=== PATIENT | male | born 1980 | race American Indian/Alaskan Native ===

== ENCOUNTER 2019-10-05 17:38 | Emergency (ER) | payer OTHER ==
[2019-10-05] MEDS ORDERED: NEOMY 3.5 MG/BACIT 400 UNITS/POLY B 5000 UNITS/GM OINT PACKET TP ONE (17:48)
[2019-10-05] MEDS ORDERED: LIDOCAINE (1%) 10 MG/1 ML VIAL 20 ML MDV INFILTRATI ONE (17:48)
[2019-10-05] MEDS ORDERED: SODIUM CHLORIDE 0.9% IRR 500 ML BOTTLE IR ONE (17:48)
[2019-10-05] MEDS ORDERED: HYDROcodone/ACETAMINOPHEN 5-325 MG TAB PO ONE (17:48)
[2019-10-05] MEDS ORDERED: SODIUM CHLORIDE IRRI 500 ML 500 ML IR ONE (17:48)
[2019-10-05] MEDS ORDERED: cephALEXin 500 MG CAP PO ONE (17:48)
--- NOTE | 2019-10-05 17:52 | Emergency Department Report ---
- General Chief Complaint: Wound/Laceration Stated Complaint: LEFT THUMB CUT Time Seen by Provider: 10/05/19 17:48 Source: patient Mode of arrival: Ambulatory Limitations: No Limitations - History of Present Illness Initial Comments: 39 yo male comes to ER sp cutting his left thumb while working on care. Bleeding controlled. Neurovasc intact. Full ROM. Tdap < 5 y ago - Related Data Previous Rx's Medication Instructions Recorded Last Taken Type Acetaminophen/Codeine [Tylenol 1 tab PO Q6H PRN #12 tab 10/05/19 Unknown Rx /Codeine # 3 tab] cephALEXin [Keflex] 500 mg PO Q12HR #20 cap 10/05/19 Unknown Rx Allergies Allergy/AdvReac Type Severity Reaction Status Date / Time No Known Allergies Allergy Unverified 10/05/19 17:39 ED Review of Systems ROS: Stated complaint: LEFT THUMB CUT Other details as noted in HPI Comment: All other systems reviewed and negative ED Past Medical Hx - Past Medical History Previous Medical History?: No - Surgical History Past Surgical History?: Yes Additional Surgical History: knee surgery eye surgery - Family History Family history: no significant - Social History Smoking Status: Never Smoker Substance Use Type: None - Medications Home Medications: Home Medications Medication Instructions Recorded Confirmed Last Taken Type Acetaminophen/Codeine [Tylenol 1 tab PO Q6H PRN #12 tab 10/05/19 Unknown Rx /Codeine # 3 tab] cephALEXin [Keflex] 500 mg PO Q12HR #20 cap 10/05/19 Unknown Rx ED Physical Exam - General Limitations: No Limitations General appearance: alert, in no apparent distress - Head Head exam: Present: atraumatic, normocephalic - Eye Eye exam: Present: normal appearance - ENT ENT exam: Present: mucous membranes moist - Neck Neck exam: Present: normal inspection - Respiratory Respiratory exam: Present: normal lung sounds bilaterally. Absent: respiratory distress - Cardiovascular Cardiovascular Exam: Present: regular rate, normal rhythm. Absent: systolic murmur, diastolic murmur, rubs, gallop - GI/Abdominal GI/Abdominal exam: Present: soft, normal bowel sounds - Rectal Rectal exam: Present: deferred - Extremities Exam Extremities exam: Present: normal inspection - Expanded Upper Extremity Exam Left Hand L/R Front: 1 - Positive: other (lac) - Back Exam Back exam: Present: normal inspection - Neurological Exam Neurological exam: Present: alert, oriented X3 - Psychiatric Psychiatric exam: Present: normal affect, normal mood - Skin Skin exam: Present: warm, dry, intact, normal color, other (LAC LEFT THUMB;). Absent: rash ED Course Vital Signs 10/05/19 17:42 Temperature 98.4 F Pulse Rate 85 Respiratory 18 Rate Blood Pressure 144/95 O2 Sat by Pulse 96 Oximetry - Laceration /Wound Repair L THUMB Wound Location: upper extremity Wound Length (cm): 2 Wound's Depth, Shape: superficial Irrigated w/ Saline (ccs): 100 Betadine Prep?: Yes Anesthesia: 1% Lidocaine Volume Anesthetic (ccs): 2 Wound Debrided: minimal Wound Repaired With: sutures Suture Size/Type: 4:0 Number of Sutures: 3 Layer Closure?: No Sterile Dressing Applied?: Yes - Nerve Block Consent Obtained: verbal consent Time Out Performed: Yes Local Anesthetic Used: Lidocaine 2% Side: left Nerve Blocks: digital Procedure Successful: Yes Complications: none Patient Tolerated Procedure: well ED Medical Decision Making - Medical Decision Making WOUND CLEANED AND REPAIRED TDAP GIVEN < 5 Y AGO Keflex PO Wound dressed Neuro vasc intact with full ROM before and after repair. Vital Signs 10/05/19 17:42 Temperature 98.4 F Pulse Rate 85 Respiratory 18 Rate Blood Pressure 144/95 O2 Sat by Pulse 96 Oximetry DC HOME ON KEFLEX pt verbalizes understanding of wound care and dc plan of care - Differential Diagnosis SIMPLE LAC Critical care attestation.: If time is entered above; I have spent that time in minutes in the direct care of this critically ill patient, excluding procedure time. ED Disposition Clinical Impression: Laceration Disposition: DC-01 TO HOME OR SELFCARE Is pt being admited?: No Does the pt Need Aspirin: No Condition: Stable Instructions: Laceration (ED) Additional Instructions: KEEP WOUND CLEAN AND DRY MOTRIN OR TYLENOL FOR PAIN ICE/ELEVATE TONIGHT MED ORDERED TO PREVENT INFECTION RETURN TO ER IN 7 DAYS TO HAVE SUTURES REMOVED Prescriptions: cephALEXin [Keflex] 500 mg PO Q12HR #20 cap Acetaminophen/Codeine [Tylenol /Codeine # 3 tab] 1 tab PO Q6H PRN #12 tab PRN Reason: Pain , Severe (7-10) Referrals: DYLON MEZA MD [Staff Physician] - 3-5 Days Time of Disposition: 17:50
[2019-10-05 18:01] VITALS: BP 144/95
== END 2019-10-05 18:25 | disposition home or self-care (01) ==
LOC: ED 17:38
DX: S61.012A Laceration without foreign body of left thumb without damage to nail, initial encounter (principal); W45.8XXA Other foreign body or object entering through skin, initial encounter; Y93.89 Activity, other specified; Y92.89 Other specified places as the place of occurrence of the external cause; Y99.8 Other external cause status
CPT/HCPCS: 99282; A6250

== ENCOUNTER 2019-11-06 22:20 | Emergency (ER) | payer OTHER ==
--- NOTE | 2019-11-06 23:08 | XRay Report ---
LEFT SHOULDER 3 VIEWS INDICATION / CLINICAL INFORMATION: fall with pain COMPARISON: None available. FINDINGS: BONES / JOINT(S): No acute fracture or subluxation. No significant arthritis. SOFT TISSUES: No significant abnormality. ADDITIONAL FINDINGS: None. Signer Name: Agustín Sommer MD Signed: 11/06/2019 11:03 PM Workstation Name: [id number]
[2019-11-07] MEDS ORDERED: HYDROcodone/ACETAMINOPHEN 5-325 MG TAB PO STA (05:05)
--- NOTE | 2019-11-07 05:13 | Emergency Department Report ---
ED Upper Extremity Inj HPI - General Chief Complaint: Shoulder Injury Stated Complaint: FALL(LEFT SHOULDER PAIN) Time Seen by Provider: 11/07/19 03:54 Source: patient Mode of arrival: Ambulatory Limitations: No Limitations - History of Present Illness MD Complaint: Injury to:: left, shoulder -: Sudden Other Extremity Injury: Shoulder: Left Other Injuries: none Handedness: right Place: home (Cramping over this deck railing trying to hang a strawberry plant lost his footing and fell to the ground hitting his left side/shoulder region has been complaining of pain since that time with occasional tingling to his hands but does have full range of motion) Improves With: none Worsens With: none Context: fall, direct blow, injury Associated Symptoms: denies other symptoms. denies: suspects foreign body, nausea/vomiting - Related Data Previous Rx's Medication Instructions Recorded Last Taken Type Acetaminophen/Codeine [Tylenol 1 tab PO Q6H PRN #12 tab 10/05/19 Unknown Rx /Codeine # 3 tab] cephALEXin [Keflex] 500 mg PO Q12HR #20 cap 10/05/19 Unknown Rx Ketorolac [Toradol] 10 mg PO Q6H PRN #14 tablet 11/07/19 Unknown Rx Allergies Allergy/AdvReac Type Severity Reaction Status Date / Time No Known Allergies Allergy Unverified 10/05/19 17:39 ED Review of Systems ROS: Stated complaint: FALL(LEFT SHOULDER PAIN) Other details as noted in HPI Comment: All other systems reviewed and negative ED Past Medical Hx - Past Medical History Previous Medical History?: No - Surgical History Past Surgical History?: Yes Additional Surgical History: left knee surgery. left eye surgery - Social History Smoking Status: Never Smoker Substance Use Type: None - Medications Home Medications: Home Medications Medication Instructions Recorded Confirmed Last Taken Type Acetaminophen/Codeine [Tylenol 1 tab PO Q6H PRN #12 tab 10/05/19 Unknown Rx /Codeine # 3 tab] cephALEXin [Keflex] 500 mg PO Q12HR #20 cap 10/05/19 Unknown Rx Ketorolac [Toradol] 10 mg PO Q6H PRN #14 tablet 11/07/19 Unknown Rx ED Physical Exam - General Limitations: No Limitations General appearance: alert, in no apparent distress - Head Head exam: Present: atraumatic, normocephalic - Eye Eye exam: Present: normal appearance - ENT ENT exam: Present: mucous membranes moist - Neck Neck exam: Present: normal inspection - Respiratory Respiratory exam: Present: normal lung sounds bilaterally. Absent: respiratory distress - Cardiovascular Cardiovascular Exam: Present: regular rate, normal rhythm. Absent: systolic murmur, diastolic murmur, rubs, gallop - GI/Abdominal GI/Abdominal exam: Present: soft, normal bowel sounds - Rectal Rectal exam: Present: deferred - Extremities Exam Extremities exam: Present: normal inspection, tenderness (There is tenderness to the left shoulder with range of motion there is there is no deformity no sulcus sign. Full range of motion is noted pain with [place]riens and Rock test.) - Back Exam Back exam: Present: normal inspection - Neurological Exam Neurological exam: Present: alert, oriented X3 - Psychiatric Psychiatric exam: Present: normal affect, normal mood - Skin Skin exam: Present: warm, dry, intact, normal color. Absent: rash ED Course Vital Signs 11/06/19 11/07/19 22:38 05:24 Temperature 98.8 F 97.8 F Pulse Rate 88 Respiratory 12 Rate Blood Pressure 130/97 142/105 O2 Sat by Pulse 94 98 Oximetry ED Medical Decision Making - Radiology Data Radiology results: report reviewed Print Report Referring Physician:ED DOCPatient Name:DAVID BONEPatient ID:[id number] of :[id number]:MaleAccession:[id number] Date:[id number] Status:Finalized Findings [address] [address] XRay Report Signed Patient: DAVID BONE MR#: [id number] : 1980 Acct:[id number] Age/Sex: 39 / M ADM Date: 11/06/19 Loc: ED Attending Dr: Ordering Physician: EMILY AG MD Date of Service: 11/06/19 Procedure(s): XR shoulder 2+V LT Accession Number(s): [id number] cc: EMILY AG MD Fluoro Time In Minutes: LEFT SHOULDER 3 VIEWS INDICATION / CLINICAL INFORMATION: fall with pain COMPARISON: None available. FINDINGS: BONES / JOINT(S): No acute fracture or subluxation. No significant arthritis. SOFT TISSUES: No significant abnormality. ADDITIONAL FINDINGS: None. Signer Name: Agustín Sommer MD Signed: 11/06/2019 11:03 PM Workstation Name: [id number] Transcribed By: SS Dictated By: Agustín Sommer MD Electronically Authenticated By: Agustín Sommer MD Signed Date/Time: 11/06/192302 DD/ 02 TD/TT: Critical care attestation.: If time is entered above; I have spent that time in minutes in the direct care of this critically ill patient, excluding procedure time. ED Disposition Clinical Impression: Shoulder pain Disposition: DC-01 TO HOME OR SELFCARE Is pt being admited?: No Does the pt Need Aspirin: No Condition: Stable Instructions: Rotator Cuff Injury (ED), Shoulder Sprain (ED), Arthralgia (ED) Prescriptions: Ketorolac [Toradol] 10 mg PO Q6H PRN #14 tablet PRN Reason: Pain Referrals: SHARON CARRERA MD [Staff Physician] - 2-3 Days
[2019-11-07 05:24] VITALS: BP 142/105
== END 2019-11-07 05:27 | disposition home or self-care (01) ==
LOC: ED 22:20
DX: M25.512 Pain in left shoulder (principal); Z98.890 Other specified postprocedural states; Z79.899 Other long term (current) drug therapy